=== PATIENT | male | born 1950 | race Caucasian/White ===

== ENCOUNTER 2016-11-26 07:22 | Day surgery (SDC) | payer OTHER ==
[2016-11-24 11:09] LABS: HEMATOCRIT 41.3 % (40.0-51.0)
[~2016-11-26 07:22] MED LIST: DUONEB INH; PROVHFA INH; SPIRIVA INH; SYMBICORT 80/4.1 INH INH
[2017-02-02] MEDS ORDERED: THEO24300 PO (15:02)
== END 2016-11-26 10:59 | disposition home or self-care (01) ==
LOC: SDC 07:22
PROVIDERS: Ophthalmology
PROC: 08RK3JZ Replacement of Left Lens with Synthetic Substitute, Percutaneous Approach (ICD-10-PCS; principal; 2016-11-26 11:15)
DX: H25.12 Age-related nuclear cataract, left eye (principal); F17.210 Nicotine dependence, cigarettes, uncomplicated; J44.9 Chronic obstructive pulmonary disease, unspecified; Z90.89 Acquired absence of other organs; Z87.01 Personal history of pneumonia (recurrent); Z79.899 Other long term (current) drug therapy
CPT/HCPCS: 85014; 85018; 93005; J2250; J2405; J3010